=== PATIENT | male | born 2000 | race Caucasian/White ===

== ENCOUNTER 2021-08-02 13:53 | Emergency (ER) | payer MEDICAID, SELFPAY ==
[2021-08-02 14:52] VITALS: BP 141/90; PULSE 86; RESP 16; TEMP 35.7; O2SAT 99
--- NOTE | 2021-08-02 15:24 | ED.GENADUL_ITS ---
Discharge Plan Disposition Patient Disposition: HOME Condition: Stable Discharge Details Clinical Impression: Visit for suture removal Primary Care Provider: Genny,Local ED Provider: Chano Sanchez Home Meds and New Rx's Prescriptions: No Action No Known Home Meds RF: 0 Discharge Instructions Instructions: Stitches Removal (ED) Discharge Data Discharge Date/Time-TO BE ENTERED AT DEPARTURE: 08/02/21 16:00 Medical Decision Making 20-year-old gentleman presents for suture removal, sutures placed 14 days ago, he has no additional questions or concerns. Is otherwise asymptomatic. 10 sutures removed without difficulty. Patient has no additional questions or concerns. Standard discharge and return precautions provided This documentation was generated using [employer] system, please disregard any oddities of phrase or misspellings. HPI General Mode of arrival: ambulatory . Date/Time Provider Initiated Documentation: 08/02/21 15:24 . Limitations to Documentation: no limitations . Information obtained by: patient . HPI Narrative: 20-year-old gentleman, [id number], presents for suture removal from his right hand that was placed at [facility] 14 days ago. He denies any pain, drainage, redness, numbness, tingling, weakness. Patient has no additional questions or concerns. Related Data Home Medications Medication Instructions Recorded Confirmed Unknown [No Known Home Meds] 08/02/21 08/02/21 Allergies Allergy/AdvReac Type Severity Reaction Status Date / Time No Known Allergies Allergy Unverified 08/02/21 14:55 General Stated Complaint: SutureRem SALOMÓN: 5 Review of Systems Constitutional Constitutional: Denies fever(s) Musculoskeletal Musculoskeletal: Denies arthralgias, Denies numbness, Denies stiffness and Denies tingling Integumentary/Breasts Skin/Breast: Denies erythema Neurologic Neurologic: Denies numbness and Denies tingling [facility] Social History Smoking/Tobacco Use Status: Former Tobacco Use Smoking risk assessment performed?: Yes Alcohol Intake: never Substance use type: does not use Exam Const General: cooperative, healthy appearing, comfortable and no acute distress Orientation: alert and awake HENMT Head: normal to inspection, normocephalic and atraumatic Eyes Conjunctivae: conjunctivae normal Neck Neck: normal visual inspection, trachea midline and supple Resp Effort & Inspection: normal respiratory effort and able to speak in complete sentences Cardio Rate: regular rate Rhythm: regular rhythm Skin General skin exam: no rashes or lesions noted Neuro General: patient alert, patient awake, moves all extremities and no focal motor deficits Cognition: normal cognition Speech: speech normal Gait: normal gait Sensory Exam: no sensory deficits noted Extrem General: full ROM and capillary refill normal Hand/finger images: 1. 5 cm semicircular well approximated laceration with [address] Neuro, vascular, tendon intact. Normal radial pulse and capillary refill. Without erythema, warmth, tenderness, drainage. Psych Appearance: grossly normal Mental Status: mental status grossly normal Course Vital Signs Vital signs: Vital Signs Temperature 35.7 C L 08/02/21 14:52 Pulse 86 08/02/21 14:52 Respiratory Rate 16 08/02/21 14:52 Blood Pressure 141/90 H 08/02/21 14:52 Pulse Oximetry 99 08/02/21 14:52 Temperature 35.7 C L 08/02/21 14:52 Pulse 86 08/02/21 14:52 Respiratory Rate 16 08/02/21 14:52 Respiratory Effort Non-Labored 08/02/21 14:52 Blood Pressure 141/90 H 08/02/21 14:52 Blood Pressure Position Sitting 08/02/21 14:52 Pulse Oximetry 99 08/02/21 14:52 Oxygen Delivery Method Room Air 08/02/21 14:52 Oxygen Flow Rate 0 08/02/21 14:52 Pain Level 0 08/02/21 14:52
== END 2021-08-02 16:00 | disposition home or self-care (01) ==
PROVIDERS: Emergency Provider Physician Assistant
DX: S61.411D Laceration without foreign body of right hand, subsequent encounter (principal); X58.XXXD Exposure to other specified factors, subsequent encounter; Z48.02 Encounter for removal of sutures
CPT/HCPCS: 99281

== ENCOUNTER 2023-03-03 21:08 | Emergency (ER) | payer MEDICAID, SELFPAY ==
[2023-03-03 21:16] VITALS: BP 142/77; PULSE 89; RESP 16; TEMP 37.2; O2SAT 100
--- NOTE | 2023-03-03 21:45 | ED.GENADUL_ITS ---
Discharge Plan Disposition Patient Disposition: Home Discharge Details Clinical Impression: Acute pharyngitis Primary Care Provider: None,None ED Provider: Rebecca Ornelas Home Meds and New Rx's Prescriptions: No Action No Known Home Meds Discharge Instructions Instructions: Pharyngitis (ED) Additional Instructions: continue salt water gargles use ibuprofen 600 mg 4 times daily with food for pain, can add acetaminophen 650 mg 4 times daily for breakthrough pain drink 6-8 glasses of water daily to stay well hydrated. your rapid strep screen is negative, likely viral. return for worsening symptoms, fever, difficultly swallowing or concerns Referrals: None,None [Primary Care Provider] - (return here for fever, worsening symptoms or concerns.) Discharge Data Discharge Date/Time-TO BE ENTERED AT DEPARTURE: 03/03/23 21:54 Medical Decision Making <Rebecca Ornelas NP - Last Filed: 03/04/23 17:12> rapid strep negative, Likely viral uvula midline, no evidence of peritonsillar abscess Safe to discharge home and continue symptom management. Did discuss worsening symptoms to return to the emergency department for further evaluation <Gege Pruitt DO - Last Filed: 03/04/23 22:52> rapid strep negative, Likely viral uvula midline, no evidence of peritonsillar abscess Safe to discharge home and continue symptom management. Did discuss worsening symptoms to return to the emergency department for further evaluation. Dr. Pruitt Patient not seen or examined by me but I was available for consult if needed. HPI <Rebecca Ornelas NP - Last Filed: 03/04/23 17:12> General Mode of arrival: ambulatory . Date/Time Provider Initiated Documentation: 03/03/23 21:15 . Limitations to Documentation: no limitations . Information obtained by: patient . HPI Narrative: sore throat 2 days, pain right side, swelling, using salt gargles, no OTC pain oral, using spray Related Data Home Medications Medication Instructions Recorded Confirmed Unknown [No Known Home Meds] 08/02/21 03/03/23 Allergies Allergy/AdvReac Type Severity Reaction Status Date / Time No Known Allergies Allergy Unverified 01/31/23 15:29 General Stated Complaint: Sorethroat SALOMÓN: 3 PFSH <Rebecca Ornelas NP - Last Filed: 03/04/23 17:12> All Active Problems (Updated 04/06/23 @ 21:47 by Rebecca Ornelas NP) Acute pharyngitis (Acute) Visit for suture removal (Acute) Social History Smoking/Tobacco Use Status: Former Tobacco Use Smoking risk assessment performed?: Yes Alcohol Intake: never Drug use: Rarely Substance use type: does not use and marijuana Course <Rebecca Ornelas NP - Last Filed: 03/04/23 17:12> Vital Signs Vital signs: Vital Signs Temperature 37.2 C 03/03/23 21:16 Pulse 89 03/03/23 21:16 Respiratory Rate 16 03/03/23 21:16 Blood Pressure 142/77 H 03/03/23 21:16 Pulse Oximetry 100 03/03/23 21:16 Temperature 37.2 C 03/03/23 21:16 Temperature Source Oral 03/03/23 21:16 Pulse 89 03/03/23 21:16 Respiratory Rate 16 03/03/23 21:16 Respiratory Effort Normal 03/03/23 21:16 Blood Pressure 142/77 H 03/03/23 21:16 Blood Pressure Position Sitting 03/03/23 21:16 Pulse Oximetry 100 03/03/23 21:16 Oxygen Delivery Method Room Air 03/03/23 21:16 Oxygen Flow Rate 0 03/03/23 21:16 Pain Level 7 03/03/23 21:16 Lab/Test Results Lab/Test Results: 03/03/23 21:15 Tonsil - Not Specified Group A Streptococcus Culture - Pending POC Strep Test-OH(Rapid) Start: 03/03/23 21:21 Freq: .Rapid Strep Test Status: Active Protocol: Document 03/03/23 21:28 (Rec: 03/03/23 21:29 [id number]) Strep test-OH(Rapid)-POC POC-Strep test-OH (Rapid) Negative POC-Strep test-OH (Rapid) Negative
[2023-03-03 21:53] VITALS: PULSE 85; RESP 18; O2SAT 97
== END 2023-03-03 21:54 | disposition home or self-care (01) ==
PROVIDERS: Emergency Provider Nurse Practitioner Acute Care
DX: J02.9 Acute pharyngitis, unspecified (principal)
CPT/HCPCS: 87880; 99282; 87081; 99283

== ENCOUNTER → 2023-07-25 10:11 | Outpatient (CLI) | payer MEDICAID, SELFPAY ==
--- NOTE | 2023-07-25 10:09 | DI.RAD_ITS ---
Exam(s) XR THORACIC SPINE COMPLETE EXAM: XR THORACIC SPINE COMPLETE CLINICAL HISTORY: back pain, injury M54.9 DORSALGIA. TECHNIQUE: 2D digital imaging was performed. Three views. COMPARISON: No exams were available for comparison FINDINGS: BONES: There is no fracture or destructive lesion. The vertebral bodies and posterior elements are un remarkable. ALIGNMENT: Within normal limits. DISKS: Interverebral disc spaces are maintained. SOFT TISSUE: Visualized lungs are clear. IMPRESSION: Unremarkable radiographs of the thoracic spine. DATA REPOSITORY: RADIATION DOSE DELIVERED:
== END ==
PROVIDERS: Visit Provider Physician Assistant
DX: M54.9 Dorsalgia, unspecified (principal)
CPT/HCPCS: 72072

== ENCOUNTER 2023-09-28 10:59 | Outpatient (REF) | payer MEDICAID, SELFPAY | END 2023-09-28 11:00 | disposition home or self-care (01) | LOC: LBN 10:59 | PROVIDERS: Visit Provider Nurse Practitioner Family | DX: J02.9 Acute pharyngitis, unspecified (principal) | CPT/HCPCS: 87070 ==